=== PATIENT | female | born 2000 | race Caucasian/White ===

== ENCOUNTER 2021-05-23 22:15 | Emergency (ER) | payer OTHER ==
[~2021-05-23] VITALS: Ht 177.8 cm; Wt 62.0 kg
[2021-05-23 22:19] VITALS: BP 100/74
== END 2021-05-23 23:15 | disposition home or self-care (01) ==
LOC: ED 22:45
DX: S00.33XA Contusion of nose, initial encounter (principal); V49.09XA Driver injured in collision with other motor vehicles in nontraffic accident, initial encounter; Y93.89 Activity, other specified; Y92.410 Unspecified street and highway as the place of occurrence of the external cause; Y99.8 Other external cause status
CPT/HCPCS: 70160; 99283